=== PATIENT | male | born 1950 | race Caucasian/White ===

== ENCOUNTER 2021-08-04 12:32 | Observation (INO) | payer OTHER, MEDICAID ==
[~2021-08-04] VITALS: Ht 170.2 cm; Wt 56.7 kg
[2021-08-04 14:38] LABS: Basophils # (auto) 0.1 10 ^3/uL (0-0.2); Basophils % (auto) 1.7 % (0.0-2.0); Eosinophils # (auto) 0.2 10 ^3/uL (0-0.8); Eosinophils % (auto) 2.3 % (0.0-7.0); Hematocrit 40.9 % (41.0-53.0); Hemoglobin 13.6 g/dL (13.5-17.5); Lymphocytes % (auto) 13.1 % (10.0-50.0); Mean Corpuscular Hemoglobin 28.8 pg (28.0-32.0); Mean Corpuscular Hgb Conc. 33.2 g/dL (32.0-36.0); Mean Corpuscular Volume 86.5 fL (80.0-100.0); Monocytes # (auto) 0.9 10 ^3/uL (0-1.3); Monocytes % (auto) 11.6 % (0.0-12.0); Neutrophils # (auto) 5.6 10 ^3/uL (1.6-8.6); Neutrophils % (auto) 71.3 % (37.0-80.0); Nucleated Red Blood Cells % 0.1 %; Red Blood Cells 4.72 10^6/uL (4.5-5.90); Red Cell Distribution Width 14.5 % (11.8-14.3); White Blood Cell 7.8 10^3/uL (4.4-10.8)
[2021-08-04 14:45] LABS: Potassium 4.5 mmol/L (3.5-5.1)
[2021-08-04 14:55] LABS: Albumin 3.2 g/dL (3.4-5.0); BUN/Creatinine Ratio 15.8; Bilirubin, Total 0.3 mg/dL (0.2-1.0); Calcium 9.4 mg/dL (8.5-10.1); Total Protein 6.6 g/dL (6.4-8.2)
[2021-08-04] MEDS ORDERED: LACTATED RINGER'S 1,000 ML IV ONE (18:45)
[2021-08-05 03:05] LABS: Albumin 2.9 g/dL (3.4-5.0); Potassium 4.3 mmol/L (3.5-5.1)
[2021-08-05 03:07] LABS: Bilirubin, Total 0.4 mg/dL (0.2-1.0); Total Protein 5.7 g/dL (6.4-8.2)
[2021-08-05] MEDS ORDERED: IOHEXOL 350 MG/ML 100ML IJ ONE (03:20)
[2021-08-05] MEDS ORDERED: HEPARIN SODIUM (PORCINE) 5000 UNITS/ML 1ML VIAL IV ONE (08:30)
[2021-08-05] MEDS ORDERED: HEPARIN DRIP/D5W 100UNITS/ML 250 ML IV SCH ×2 (08:30→11:00)
[2021-08-05 08:50] VITALS: BP 166/73
[2021-08-05 09:53] LABS: INR 1.09 (0.9-1.15); Partial Thromboplastin Time 29.6 sec (23.6-33.0)
[2021-08-05] MEDS ORDERED: NITROGLYCERIN 0.4 MG SL TAB SL PRN (10:00)
[2021-08-05] MEDS ORDERED: SOD CHL 0.45% 1,000 ML IV ONE (10:00)
[2021-08-05] MEDS ORDERED: MORPHINE SULFATE INJECTION 2 MG/ML SYRG IV PRN ×2 (10:00)
[2021-08-05] MEDS ORDERED: ONDANSETRON HCL 4 MG/2 ML VIAL IV PRN (10:00)
[2021-08-05] MEDS ORDERED: VANCOMYCIN PER PHARMACY 0 MG IV SCH (12:00)
[2021-08-05] MEDS ORDERED: VANCOMYCIN 1GM/250ML 250 ML IV ONE ×3 (12:30→20:00)
[2021-08-05] MEDS ORDERED: PIPERACILLIN-TAZOB 3.375GM 100 ML IV SCH (14:00)
== END 2021-08-05 10:01 | disposition home or self-care (01) ==
LOC: ER 12:32 → OVERFLOW 13:36 → ER 08-05 09:52 → OVERFLOW 08-05 09:52 → UNDOADMOB 08-05 10:00 → OVERFLOW 08-05 10:00 → UNDODISOB 08-05 10:01
PROVIDERS: ADMIT Internal Medicine; ATTEND Internal Medicine
DX: L03.116 Cellulitis of left lower limb (principal); Z20.822 Contact with and (suspected) exposure to COVID-19; N13.2 Hydronephrosis with renal and ureteral calculous obstruction; I77.1 Stricture of artery; Z86.718 Personal history of other venous thrombosis and embolism
CPT/HCPCS: 36415; 75635; 80053; 85025; 85610; 85730; 87426; 93005; 93971; 96361; 96374; 99285; G0378; J1644; Q9967

== ENCOUNTER 2021-12-06 16:50 | Emergency (ER) | payer OTHER, MEDICAID ==
[~2021-12-06] VITALS: Ht 170.2 cm; Wt 86.2 kg
[2021-12-06 20:41] LABS: Basophils # (auto) 0 10 ^3/uL (0-0.2); Basophils % (auto) 0.5 % (0.0-2.0); Eosinophils # (auto) 0.3 10 ^3/uL (0-0.8); Eosinophils % (auto) 4.7 % (0.0-7.0); Hematocrit 39.1 % (41.0-53.0); Lymphocytes # (auto) 0.8 10 ^3/uL (0.4-5.4); Lymphocytes % (auto) 12.4 % (10.0-50.0); Mean Corpuscular Hemoglobin 27.7 pg (28.0-32.0); Mean Corpuscular Hgb Conc. 33.3 g/dL (32.0-36.0); Mean Corpuscular Volume 83.4 fL (80.0-100.0); Monocytes # (auto) 0.6 10 ^3/uL (0-1.3); Monocytes % (auto) 9.1 % (0.0-12.0); Neutrophils % (auto) 73.3 % (37.0-80.0); Nucleated Red Blood Cells % 0.1 %; Red Blood Cells 4.69 10^6/uL (4.5-5.90); Red Cell Distribution Width 15.9 % (11.8-14.3); White Blood Cell 6.8 10^3/uL (4.4-10.8)
[2021-12-06 21:03] LABS: Albumin 2.9 g/dL (3.4-5.0); Calcium 9.4 mg/dL (8.5-10.1); Potassium 3.8 mmol/L (3.5-5.1)
[2021-12-06 21:07] LABS: BUN/Creatinine Ratio 21.7; Bilirubin, Total 0.7 mg/dL (0.2-1.0); Total Protein 6.5 g/dL (6.4-8.2); Urine Bacteria NONE SEEN /hpf (None Seen); Urine Blood Negative /uL (Negative); Urine Specific Gravity 1.015 (1.001-1.035); Urine WBC 7 /hpf (0 - 3)
[2021-12-07] MEDS ORDERED: SULF400T11 PO (06:22)
[2021-12-07] MEDS ORDERED: CEPH-509 PO (06:22)
[2021-12-07 07:35] VITALS: BP 123/60
== END 2021-12-07 07:41 | disposition admitted as inpatient to this hospital (09) ==
LOC: ER 16:50
DX: T81.40XA Infection following a procedure, unspecified, initial encounter (principal); M60.862 Other myositis, left lower leg; E11.9 Type 2 diabetes mellitus without complications
CPT/HCPCS: 36415; 71045; 73700; 80053; 81001; 83605; 84484; 85025; 85652; 86141; 87040; 93005

== ENCOUNTER 2022-12-29 16:27 | Emergency (ER) | payer OTHER, MEDICAID ==
[~2022-12-29 16:27] MED LIST: CEPH-509 PO; SULF400T11 PO
[2022-12-29 17:26] LABS: Basophils # (auto) 0.1 10 ^3/uL (0-0.2); Basophils % (auto) 0.8 % (0.0-2.0); Eosinophils # (auto) 0.1 10 ^3/uL (0-0.8); Eosinophils % (auto) 1.9 % (0.0-7.0); Hematocrit 38.6 % (41.0-53.0); Hemoglobin 12.6 g/dL (13.5-17.5); Lymphocytes # (auto) 0.6 10 ^3/uL (0.4-5.4); Lymphocytes % (auto) 9.4 % (10.0-50.0); Mean Corpuscular Hemoglobin 28.3 pg (28.0-32.0); Mean Corpuscular Hgb Conc. 32.5 g/dL (32.0-36.0); Mean Corpuscular Volume 87.1 fL (80.0-100.0); Monocytes # (auto) 0.8 10 ^3/uL (0-1.3); Monocytes % (auto) 12.9 % (0.0-12.0); Neutrophils # (auto) 4.8 10 ^3/uL (1.6-8.6); Red Blood Cells 4.43 10^6/uL (4.5-5.90); Red Cell Distribution Width 17.1 % (11.8-14.3); White Blood Cell 6.4 10^3/uL (4.4-10.8)
[2022-12-29 17:34] LABS: Albumin 2.5 g/dL (3.4-5.0); Calcium 10.4 mg/dL (8.5-10.1)
[2022-12-29 17:38] LABS: BUN/Creatinine Ratio 12.8 (10.0-20.0); Bilirubin, Total 0.4 mg/dL (0.2-1.0); Total Protein 5.7 g/dL (6.4-8.2)
[2022-12-29 23:13] VITALS: BP 135/73
== END 2022-12-29 23:40 | disposition home or self-care (01) ==
LOC: ER 16:27
DX: D64.9 Anemia, unspecified (principal); E11.65 Type 2 diabetes mellitus with hyperglycemia; E83.52 Hypercalcemia; E78.5 Hyperlipidemia, unspecified; E78.00 Pure hypercholesterolemia, unspecified; I10 Essential (primary) hypertension; Z89.612 Acquired absence of left leg above knee; Z89.611 Acquired absence of right leg above knee
CPT/HCPCS: 36415; 80053; 85025; 86850; 86900; 86901

== ENCOUNTER 2023-04-18 17:13 | Inpatient (IN) | payer OTHER, MEDICAID ==
[~2023-04-18] VITALS: Ht 121.9 cm; Wt 76.1 kg
[~2023-04-18 17:13] MED LIST changes: +ATEN-60 PO; +DOCU-94 PO; +FENO145T27 PO; +FERR325T24 PO; +INSLISPI SC; +LORA-1121 PO; +METF-370 PO; +PRAV20TA3 PO; +QUET25TA37 PO; +RIV15T PO
[2023-04-18 18:58] VITALS: PULSE 89; RESP 16; O2SAT 97
[2023-04-18 19:15] LABS: Basophils # (auto) 0.1 10 ^3/uL (0-0.2); Eosinophils # (auto) 0.1 10 ^3/uL (0-0.8); Lymphocytes # (auto) 0.7 10 ^3/uL (0.4-5.4); Mean Corpuscular Volume 93.1 fL (80.0-100.0); Monocytes # (auto) 0.9 10 ^3/uL (0-1.3); White Blood Cell 6.5 10^3/uL (4.4-10.8)
[2023-04-18 19:17] LABS: Basophils % (auto) 0.9 % (0.0-2.0); Eosinophils % (auto) 2.1 % (0.0-7.0); Hematocrit 24.7 % (41.0-53.0); Lymphocytes % (auto) 10.3 % (10.0-50.0); Mean Corpuscular Hemoglobin 30.3 pg (28.0-32.0); Mean Corpuscular Hgb Conc. 32.5 g/dL (32.0-36.0); Monocytes % (auto) 13.5 % (0.0-12.0); Neutrophils # (auto) 4.8 10 ^3/uL (1.6-8.6); Neutrophils % (auto) 73.2 % (37.0-80.0); Nucleated Red Blood Cells % 0.2 %; Red Blood Cells 2.65 10^6/uL (4.5-5.90); Red Cell Distribution Width 16.6 % (11.8-14.3)
[2023-04-18 19:30] LABS: Alanine Aminotransferase 21 U/L (7-40); Albumin 3.2 g/dL (3.2-4.8); Alkaline Phosphatase 43 U/L (46-116); Anion Gap 13 (5-15); Aspartate Aminotransferase 25 U/L (13-40); BUN/Creatinine Ratio 20.4 (10.0-20.0); Blood Urea Nitrogen 79 mg/dL (9-23); Calcium 9.9 mg/dL (8.5-10.1); Carbon Dioxide 16 mmol/L (20-30); Chloride 113 mmol/L (98-107); Glucose 143 mg/dL (74-106); Sodium 142 mmol/L (136-145)
[2023-04-18 19:31] LABS: Bilirubin, Total 0.2 mg/dL (0.2-1.0); Total Protein 5.5 g/dL (5.7-8.2)
[2023-04-18 19:34] LABS: Potassium 5.8 mmol/L (3.5-5.1)
[2023-04-18 19:35] VITALS: O2SAT 99
[2023-04-18] MEDS ORDERED: InsuLIN REG 1unit/0.01ml Soln (100units/ml) IV ONE (19:45)
[2023-04-18] MEDS ORDERED: SODIUM BICARBONATE 8.4 % INJ 50ML VIAL IV ONE (19:45)
[2023-04-18] MEDS ORDERED: CALCIUM GLUC 1,000mg/50ml-NS 50 ML IV ONE (19:45)
[2023-04-18] MEDS ORDERED: DEXTROSE (50%) 50ML SYRG IV ONE (19:45)
[2023-04-18] MEDS ORDERED: ALBUTEROL SULF 2.5 MG/0.5ML(0.5%) NEB SOLN NEB ONE (19:45)
[2023-04-18] MEDS ORDERED: SODIUM CHLORIDE 0.9% 500 ML IV ONE (20:15)
[2023-04-18] MEDS ORDERED: DEXTROSE (50%) 50ML SYRG IV PRN ×2 (21:30→23:45)
[2023-04-18] MEDS ORDERED: InsuLIN REG 1unit/0.01ml Soln (100units/ml) SC SCH (22:00)
[2023-04-18] MEDS ORDERED: ACCU-CHEK COMFORT CURVE STRIP VI SCH (22:00)
[2023-04-19] MEDS: SODIUM CHLORIDE 0.9% 1,000 ML IV SCH ×2 (01:02→20:22)
[2023-04-19 05:06] LABS: Eosinophils # (auto) 0.1 10 ^3/uL (0-0.8); Eosinophils % (auto) 0.9 % (0.0-7.0); Hemoglobin 7.4 g/dL (13.5-17.5); Lymphocytes # (auto) 0.5 10 ^3/uL (0.4-5.4); Monocytes # (auto) 0.8 10 ^3/uL (0-1.3)
[2023-04-19 05:08] LABS: Basophils # (auto) 0.1 10 ^3/uL (0-0.2); Basophils % (auto) 0.8 % (0.0-2.0); Hematocrit 23.1 % (41.0-53.0); Lymphocytes % (auto) 7.9 % (10.0-50.0); Mean Corpuscular Hemoglobin 29.4 pg (28.0-32.0); Mean Corpuscular Hgb Conc. 32.1 g/dL (32.0-36.0); Mean Corpuscular Volume 91.6 fL (80.0-100.0); Monocytes % (auto) 13.2 % (0.0-12.0); Neutrophils # (auto) 4.9 10 ^3/uL (1.6-8.6); Neutrophils % (auto) 77.2 % (37.0-80.0); Red Blood Cells 2.53 10^6/uL (4.5-5.90); Red Cell Distribution Width 16.5 % (11.8-14.3); White Blood Cell 6.3 10^3/uL (4.4-10.8)
[2023-04-19 05:23] LABS: Alanine Aminotransferase 20 U/L (7-40); Alkaline Phosphatase 41 U/L (46-116); Anion Gap 10 (5-15); Aspartate Aminotransferase 20 U/L (13-40); Calcium 9.1 mg/dL (8.7-10.4); Carbon Dioxide 18 mmol/L (20-30); Chloride 114 mmol/L (98-107); Glucose 108 mg/dL (74-106); Potassium 5.4 mmol/L (3.5-5.1); Sodium 142 mmol/L (136-145)
[2023-04-19 05:24] LABS: Bilirubin, Total 0.2 mg/dL (0.2-1.0); Total Protein 5.3 g/dL (5.7-8.2)
[2023-04-19 05:33] LABS: Blood Urea Nitrogen 89 mg/dL (9-23)
[2023-04-19] MEDS ORDERED: SODIUM ZIRCONIUM CYCL 10 GM PAK PO ONE (05:45)
[2023-04-19 06:39] LABS: Urine Bacteria FEW /hpf (None Seen); Urine Blood 1+ /uL (Negative); Urine Clarity Clear (Clear); Urine Color Straw (Yellow); Urine Mucus FEW (None Seen); Urine Protein, UAD 1+ (Negative); Urine Specific Gravity 1.012 (1.001-1.035); Urine Urobilinogen Normal (Negative); Urine WBC 12 /hpf (0 - 3); Urine pH 5.5 (5.0-8.0)
[2023-04-19] MEDS: ACCU-CHEK COMFORT CURVE STRIP VI SCH ×4 (06:45→23:30)
[2023-04-19] MEDS: InsuLIN REG 1unit/0.01ml Soln (100units/ml) SC SCH ×4 (06:45→22:00)
[2023-04-19 09:00] VITALS: BP 80/44; PULSE 78; RESP 16; TEMP 98.8; O2SAT 98
[2023-04-19] MEDS ORDERED: HEPARIN SODIUM (PORCINE) 5000 UNITS/ML 1ML VIAL SC SCH (10:00)
[2023-04-19] MEDS ORDERED: RIVAROXABAN 2.5 MG TAB PO SCH (11:30)
[2023-04-19 13:00] VITALS: BP 92/55; PULSE 79; RESP 16; TEMP 98.8; O2SAT 96
[2023-04-19 17:00] VITALS: BP 85/52; PULSE 77; RESP 20; TEMP 98.5; O2SAT 97
[2023-04-19 19:50] VITALS: BP 101/54; PULSE 83; RESP 16; RESP 18; O2SAT 94
[2023-04-19] MEDS: MORPHINE SULFATE INJ 2 MG/ml SYRG IV PRN (20:07)
[2023-04-20] VITALS (8 sets, daily range): BP systolic 95–108; BP diastolic 53–74; PULSE 65–90; RESP 10–16; TEMP 97.3–98.6; O2SAT 72–99
[2023-04-20] MEDS: SODIUM CHLORIDE 0.9% 1,000 ML IV SCH ×2 (02:25→15:45)
[2023-04-20] MEDS: ACCU-CHEK COMFORT CURVE STRIP VI SCH ×4 (06:34→21:54)
[2023-04-20] MEDS: InsuLIN REG 1unit/0.01ml Soln (100units/ml) SC SCH ×4 (06:34→21:54)
[2023-04-20 08:37] LABS: Basophils # (auto) 0.1 10 ^3/uL (0-0.2); Eosinophils # (auto) 0.1 10 ^3/uL (0-0.8); Hemoglobin 7.4 g/dL (13.5-17.5); Lymphocytes # (auto) 0.5 10 ^3/uL (0.4-5.4); Monocytes # (auto) 0.8 10 ^3/uL (0-1.3)
[2023-04-20 08:38] LABS: Eosinophils % (auto) 2.2 % (0.0-7.0); Hematocrit 22.6 % (41.0-53.0); Lymphocytes % (auto) 9.1 % (10.0-50.0); Mean Corpuscular Hemoglobin 29.8 pg (28.0-32.0); Mean Corpuscular Hgb Conc. 32.6 g/dL (32.0-36.0); Mean Corpuscular Volume 91.2 fL (80.0-100.0); Monocytes % (auto) 14.8 % (0.0-12.0); Neutrophils # (auto) 4.1 10 ^3/uL (1.6-8.6); Neutrophils % (auto) 72.9 % (37.0-80.0); Nucleated Red Blood Cells % 0.1 %; Red Blood Cells 2.48 10^6/uL (4.5-5.90); Red Cell Distribution Width 16.2 % (11.8-14.3); White Blood Cell 5.6 10^3/uL (4.4-10.8)
[2023-04-20 08:51] LABS: INR 1.25 (0.9-1.15); Partial Thromboplastin Time 34.5 SEC (24.5-34.5); Prothrombin Time 12.9 sec (9.3-11.8)
[2023-04-20 08:52] LABS: Alanine Aminotransferase 18 U/L (7-40); Albumin 3.1 g/dL (3.2-4.8); Alkaline Phosphatase 39 U/L (46-116); Anion Gap 11 (5-15); Aspartate Aminotransferase 24 U/L (13-40); BUN/Creatinine Ratio 21.7 (10.0-20.0); Calcium 8.9 mg/dL (8.5-10.1); Carbon Dioxide 18 mmol/L (20-30); Chloride 114 mmol/L (98-107); Glucose 93 mg/dL (74-106); Potassium 5.5 mmol/L (3.5-5.1); Sodium 143 mmol/L (136-145)
[2023-04-20 08:53] LABS: Bilirubin, Total 0.2 mg/dL (0.2-1.0); Total Protein 5.3 g/dL (5.7-8.2)
[2023-04-20 09:27] LABS: Blood Urea Nitrogen 86 mg/dL (9-23)
[2023-04-20] MEDS ORDERED: IOHEXOL 300 MG/ML 100ML BOTTLE IJ ONE ×2 (13:10→17:06)
[2023-04-20] MEDS ORDERED: CIPROFLOXACIN 400MG/200ML 200 ML IV ONE (15:58)
[2023-04-20] MEDS ORDERED: ONDANSETRON HCL 4 MG/2 ML VIAL IV PRN (18:45)
[2023-04-20] MEDS: MUPIROCIN 2% OINT 15gm or 22gm FOR MRSA NARES EACHNOSTRI SCH (21:54)
[2023-04-21 05:00] VITALS: BP 98/50; PULSE 83; RESP 16; TEMP 98.4; O2SAT 98
[2023-04-21] MEDS: ACCU-CHEK COMFORT CURVE STRIP VI SCH ×4 (06:34→21:39)
[2023-04-21] MEDS: InsuLIN REG 1unit/0.01ml Soln (100units/ml) SC SCH ×4 (06:35→21:41)
[2023-04-21] MEDS: SODIUM CHLORIDE 0.9% 1,000 ML IV SCH ×2 (06:40→18:25)
[2023-04-21 08:00] VITALS: PULSE 85; RESP 19; O2SAT 99
[2023-04-21 09:00] VITALS: BP 95/50; PULSE 85; RESP 19; TEMP 97.6; O2SAT 99
[2023-04-21] MEDS: MUPIROCIN 2% OINT 15gm or 22gm FOR MRSA NARES EACHNOSTRI SCH ×2 (10:26→21:39)
[2023-04-21 13:00] VITALS: BP 102/60; PULSE 79; RESP 19; TEMP 98; O2SAT 98
[2023-04-21 22:00] VITALS: BP 120/55; PULSE 76; RESP 14; TEMP 98.6; O2SAT 98
[2023-04-22 05:00] VITALS: BP 129/49; PULSE 89; RESP 16; TEMP 98.2; O2SAT 97
[2023-04-22] MEDS: InsuLIN REG 1unit/0.01ml Soln (100units/ml) SC SCH ×4 (06:30→22:00)
[2023-04-22] MEDS: ACCU-CHEK COMFORT CURVE STRIP VI SCH ×4 (06:30→22:01)
[2023-04-22 08:00] VITALS: PULSE 65; RESP 17; O2SAT 97
[2023-04-22 08:57] VITALS: BP 110/50; PULSE 65; RESP 17; TEMP 98.4; O2SAT 97
[2023-04-22] MEDS: SODIUM CHLORIDE 0.9% 1,000 ML IV SCH ×2 (10:49→22:12)
[2023-04-22] MEDS: MUPIROCIN 2% OINT 15gm or 22gm FOR MRSA NARES EACHNOSTRI SCH ×2 (10:50→22:01)
[2023-04-22 13:00] VITALS: BP 110/56; PULSE 68; RESP 16; TEMP 98.2; O2SAT 96
[2023-04-22 17:00] VITALS: BP 103/49; PULSE 73; RESP 18; TEMP 97.9; O2SAT 96
[2023-04-22 22:00] VITALS: BP 125/68; PULSE 85; RESP 16; TEMP 98; O2SAT 100
[2023-04-23] VITALS (9 sets, daily range): BP systolic 105–138; BP diastolic 52–85; PULSE 56–85; RESP 16–20; TEMP 97–98.6; O2SAT 90–98
[2023-04-23] MEDS: ACCU-CHEK COMFORT CURVE STRIP VI SCH ×4 (05:58→21:32)
[2023-04-23] MEDS: InsuLIN REG 1unit/0.01ml Soln (100units/ml) SC SCH ×4 (05:58→21:51)
[2023-04-23] MEDS: MUPIROCIN 2% OINT 15gm or 22gm FOR MRSA NARES EACHNOSTRI SCH ×2 (09:16→21:31)
[2023-04-23] MEDS: SODIUM CHLORIDE 0.9% 1,000 ML IV SCH (12:37)
[2023-04-23] MEDS: MORPHINE SULFATE INJ 2 MG/ml SYRG IV PRN (12:38)
[2023-04-23] MEDS ORDERED: LIDOCAINE 2%HCL (LOCAL ANESTH.) INJ 20ML MDV ONE (14:10)
[2023-04-23] MEDS ORDERED: IODIXANOL 320MG/ML 100ML BTL IV ONE (14:10)
[2023-04-23 18:12] LABS: Basophils # (auto) 0.1 10 ^3/uL (0-0.2); Basophils % (auto) 0.9 % (0.0-2.0); Eosinophils # (auto) 0.1 10 ^3/uL (0-0.8); Eosinophils % (auto) 1.1 % (0.0-7.0); Lymphocytes # (auto) 0.4 10 ^3/uL (0.4-5.4); Lymphocytes % (auto) 7.2 % (10.0-50.0); Mean Corpuscular Hemoglobin 29.1 pg (28.0-32.0); Mean Corpuscular Hgb Conc. 31.1 g/dL (32.0-36.0); Mean Corpuscular Volume 93.3 fL (80.0-100.0); Monocytes # (auto) 0.9 10 ^3/uL (0-1.3); Monocytes % (auto) 15.1 % (0.0-12.0); Neutrophils # (auto) 4.4 10 ^3/uL (1.6-8.6); Neutrophils % (auto) 75.7 % (37.0-80.0); Nucleated Red Blood Cells % 0.2 %; Red Blood Cells 3.11 10^6/uL (4.5-5.90); Red Cell Distribution Width 18.1 % (11.8-14.3); White Blood Cell 5.9 10^3/uL (4.4-10.8)
[2023-04-23 18:33] LABS: Alanine Aminotransferase 15 U/L (7-40); Albumin 2.9 g/dL (3.2-4.8); Alkaline Phosphatase 46 U/L (46-116); Anion Gap 12 (5-15); Aspartate Aminotransferase 20 U/L (13-40); BUN/Creatinine Ratio 17.8 (10.0-20.0); Bilirubin, Total 0.2 mg/dL (0.2-1.0); Blood Urea Nitrogen 70 mg/dL (9-23); Calcium 8.1 mg/dL (8.7-10.4); Carbon Dioxide 13 mmol/L (20-30); Chloride 118 mmol/L (98-107); Glucose 110 mg/dL (74-106); Potassium 4.4 mmol/L (3.5-5.1); Sodium 143 mmol/L (136-145); Total Protein 5.1 g/dL (5.7-8.2)
[2023-04-23 19:21] LABS: Uric Acid 5.5 mg/dL (3.7-9.2)
[2023-04-23 19:24] LABS: Phosphorus 7.5 mg/dL (2.4-5.1)
[2023-04-23] MEDS: SODIUM BICARBONATE 50ML VIAL 50 ML in SOD CHL 0.45% 1,000 ML IV SCH (23:03)
[2023-04-24] VITALS (10 sets, daily range): BP systolic 109–117; BP diastolic 59–66; PULSE 71–88; RESP 14–22; TEMP 97.4–97.8; O2SAT 95–100
[2023-04-24] MEDS: SODIUM BICARBONATE 50ML VIAL 50 ML in SOD CHL 0.45% 1,000 ML IV SCH ×2 (05:15→17:17)
[2023-04-24 06:50] LABS: Alanine Aminotransferase 16 U/L (7-40); Albumin 3.1 g/dL (3.2-4.8); Alkaline Phosphatase 42 U/L (46-116); Anion Gap 15 (5-15); Aspartate Aminotransferase 18 U/L (13-40); BUN/Creatinine Ratio 12.1 (10.0-20.0); Bilirubin, Total 0.3 mg/dL (0.2-1.0); Blood Urea Nitrogen 44 mg/dL (9-23); Calcium 8.4 mg/dL (8.5-10.1); Carbon Dioxide 12 mmol/L (20-30); Chloride 116 mmol/L (98-107); Glucose 101 mg/dL (74-106); Potassium 4.5 mmol/L (3.5-5.1); Sodium 143 mmol/L (136-145); Total Protein 5.4 g/dL (5.7-8.2)
[2023-04-24] MEDS: InsuLIN REG 1unit/0.01ml Soln (100units/ml) SC SCH ×4 (07:00→22:19)
[2023-04-24] MEDS ORDERED: LIDOCAINE 2% JELLY 11ml (GLYDO) ONE (07:01)
[2023-04-24] MEDS: ACCU-CHEK COMFORT CURVE STRIP VI SCH ×4 (07:04→22:19)
[2023-04-24] MEDS ORDERED: LIDOCAINE 2% (LOCAL ANESTH.) PF 5ml SDV ONE (07:22)
[2023-04-24] MEDS ORDERED: DexAMETHasone SOD PHOS 10MG/1ML VIAL INJ ONE (07:22)
[2023-04-24] MEDS ORDERED: ROCURONIUM 10MG/ML 10ML VIAL IV ONE (07:22)
[2023-04-24] MEDS ORDERED: KETOROLAC TROMETH 30 MG/ML 1ML VIAL ONE (07:22)
[2023-04-24] MEDS ORDERED: ceFAZolin 1GM/50ML 100 ML IV ONE (07:22)
[2023-04-24] MEDS ORDERED: PROPOFOL 10 MG/ML 20 ML IV ONE (07:22)
[2023-04-24] MEDS ORDERED: GLYCOPYRROLATE 0.2 MG/ML 1ML VIAL ONE (07:22)
[2023-04-24] MEDS ORDERED: ONDANSETRON HCL 4 MG/2 ML VIAL ONE (07:22)
[2023-04-24] MEDS ORDERED: fentaNYL CITRATE 100 MCG/2 ML VL ONE (07:23)
[2023-04-24] MEDS ORDERED: SUGAMMADEX 200mg/2ml Vial (100MG/ML) IV ONE (07:24)
[2023-04-24] MEDS ORDERED: IOHEXOL 300 MG/ML 100ML BOTTLE IJ ONE (07:27)
[2023-04-24] MEDS ORDERED: SODIUM CHLORIDE LOCK 10 ML ONE ×2 (07:33→07:41)
[2023-04-24] MEDS ORDERED: PHENYLEPHRINE HCL 10 MG/ML VL ONE (07:41)
[2023-04-24] MEDS: SEVELAMER 800 MG TAB PO SCH ×2 (13:54→18:24)
[2023-04-24] MEDS: MUPIROCIN 2% OINT 15gm or 22gm FOR MRSA NARES EACHNOSTRI SCH ×2 (14:24→21:56)
[2023-04-24] MEDS: MORPHINE SULFATE INJ 2 MG/ml SYRG IV PRN ×2 (17:13→22:05)
[2023-04-25] MEDS: SODIUM BICARBONATE 50ML VIAL 50 ML in SOD CHL 0.45% 1,000 ML IV SCH (02:15)
[2023-04-25 05:00] VITALS: BP 90/50; PULSE 71; RESP 17; TEMP 97.6; O2SAT 99
[2023-04-25] MEDS: ACCU-CHEK COMFORT CURVE STRIP VI SCH ×4 (06:47→22:00)
[2023-04-25] MEDS: InsuLIN REG 1unit/0.01ml Soln (100units/ml) SC SCH ×4 (06:47→22:00)
[2023-04-25 09:00] VITALS: BP 79/51; PULSE 80; RESP 18; TEMP 98.9; O2SAT 94
[2023-04-25] MEDS: MUPIROCIN 2% OINT 15gm or 22gm FOR MRSA NARES EACHNOSTRI SCH (09:56)
[2023-04-25] MEDS: SEVELAMER 800 MG TAB PO SCH ×3 (09:56→18:06)
[2023-04-25] MEDS ORDERED: SEVE800T8 PO (11:23)
[2023-04-25] MEDS: SODIUM BICARBONATE 50ML VIAL 100 ML in SOD CHL 0.45% 1,000 ML IV SCH ×2 (12:30→23:30)
[2023-04-25 12:41] VITALS: BP 103/69; PULSE 89; RESP 18; TEMP 99; O2SAT 97
[2023-04-25] MEDS ORDERED: HYDROcodone-ACET 5/325MG TAB PO PRN (17:00)
[2023-04-25 17:09] VITALS: BP 103/51; PULSE 65; RESP 20; TEMP 97.5; O2SAT 98
[2023-04-25 20:00] VITALS: BP 111/59; PULSE 75; PULSE 99; RESP 18; RESP 20; TEMP 97.6; O2SAT 96
[2023-04-25 22:06] VITALS: BP 111/59; PULSE 66; RESP 18; TEMP 97.6; O2SAT 99
[2023-04-26 04:47] VITALS: BP 101/58; PULSE 69; RESP 20; TEMP 98; O2SAT 96
[2023-04-26] MEDS: ONDANSETRON HCL 4 MG/2 ML VIAL IV PRN ×2 (04:50→10:04)
[2023-04-26] MEDS: InsuLIN REG 1unit/0.01ml Soln (100units/ml) SC SCH ×3 (06:53→16:54)
[2023-04-26] MEDS: ACCU-CHEK COMFORT CURVE STRIP VI SCH ×3 (06:54→16:54)
[2023-04-26 08:00] VITALS: PULSE 64; O2SAT 99
[2023-04-26 08:30] VITALS: BP 120/65; PULSE 64; RESP 18; TEMP 98.6; O2SAT 99
[2023-04-26] MEDS: SEVELAMER 800 MG TAB PO SCH ×3 (08:58→18:00)
[2023-04-26] MEDS: SODIUM BICARBONATE 50ML VIAL 100 ML in SOD CHL 0.45% 1,000 ML IV SCH (10:30)
[2023-04-26 13:21] VITALS: BP 103/53; PULSE 59; RESP 17; TEMP 98.5; O2SAT 91
[2023-04-26 16:29] VITALS: TEMP 36.9
[2023-04-26 16:44] VITALS: BP 111/50; PULSE 57; RESP 16; TEMP 98; O2SAT 94
== END 2023-04-26 20:20 | disposition hospice, home (50) | DRG 660 ==
LOC: EDBD 17:13 → ER 17:13 → EDUNIT# 17:13 → OVERFLOW 23:50 → WEST WING 04-19 07:51
PROVIDERS: ADMIT Nurse Practitioner; ATTEND Family Medicine
PROC: 0TCB8ZZ Extirpation of Matter from Bladder, Via Natural or Artificial Opening Endoscopic (ICD-10-PCS; 2023-04-20)
PROC: 0TF6XZZ Fragmentation in Right Ureter, External Approach (ICD-10-PCS; 2023-04-20)
PROC: 30233N1 Transfusion of Nonautologous Red Blood Cells into Peripheral Vein, Percutaneous Approach (ICD-10-PCS; 2023-04-20 16:53)
PROC: 05HB33Z Insertion of Infusion Device into Right Basilic Vein, Percutaneous Approach (ICD-10-PCS; 2023-04-23)
PROC: B54MZZA Ultrasonography of Right Upper Extremity Veins, Guidance (ICD-10-PCS; 2023-04-23)
PROC: 0T9330Z Drainage of Right Kidney Pelvis with Drainage Device, Percutaneous Approach (ICD-10-PCS; 2023-04-24)
PROC: BT11YZZ Fluoroscopy of Right Kidney using Other Contrast (ICD-10-PCS; 2023-04-24)
PROC: BT41ZZZ Ultrasonography of Right Kidney (ICD-10-PCS; 2023-04-24)
PROC: 0T733DZ Dilation of Right Kidney Pelvis with Intraluminal Device, Percutaneous Approach (ICD-10-PCS; principal; 2023-04-24 07:29)
DX: T83.022A Displacement of nephrostomy catheter, initial encounter (principal); E87.20 Acidosis, unspecified; N18.4 Chronic kidney disease, stage 4 (severe); N13.2 Hydronephrosis with renal and ureteral calculous obstruction; N17.9 Acute kidney failure, unspecified; Z68.42 Body mass index [BMI] 45.0-49.9, adult; E11.22 Type 2 diabetes mellitus with diabetic chronic kidney disease; E87.5 Hyperkalemia; I12.9 Hypertensive chronic kidney disease with stage 1 through stage 4 chronic kidney disease, or unspecified chronic kidney disease; E83.39 Other disorders of phosphorus metabolism; R62.7 Adult failure to thrive; F03.90 Unspecified dementia, unspecified severity, without behavioral disturbance, psychotic disturbance, mood disturbance, and anxiety; N21.0 Calculus in bladder; E78.00 Pure hypercholesterolemia, unspecified; Z89.612 Acquired absence of left leg above knee; Z89.611 Acquired absence of right leg above knee; Z86.73 Personal history of transient ischemic attack (TIA), and cerebral infarction without residual deficits; Z51.5 Encounter for palliative care; Y84.6 Urinary catheterization as the cause of abnormal reaction of the patient, or of later complication, without mention of misadventure at the time of the procedure; Y92.89 Other specified places as the place of occurrence of the external cause
CPT/HCPCS: 36415; 71045; 74018; 74176; 76000; 76775; 76942; 80053; 81001; 82306; 82962; 83970; 84100; 84132; 84550; 85025; 85610; 85730; 86850; 86900; 86901; 86920; 87081; 93005; 94640; 99152; 99291; C1769; G0378; J0690; J1100; J1815; J1885; J2001; J2405; J2704; Q9967

== ENCOUNTER 2023-04-28 19:37 | Inpatient (IN) | payer OTHER, MEDICAID ==
[~2023-04-28] VITALS: Ht 134.6 cm; Wt 74.1 kg
[~2023-04-28 19:37] MED LIST changes: +SEVE800T8 PO
[2023-04-28 20:15] VITALS: PULSE 68; RESP 18; O2SAT 90
[2023-04-28 20:36] LABS: Basophils # (auto) 0 10 ^3/uL (0-0.2); Eosinophils # (auto) 0.1 10 ^3/uL (0-0.8); Hemoglobin 9.1 g/dL (13.5-17.5); Lymphocytes # (auto) 0.5 10 ^3/uL (0.4-5.4); Mean Corpuscular Volume 93.9 fL (80.0-100.0); Nucleated Red Blood Cells % 0.1 %
[2023-04-28 20:38] LABS: Basophils % (auto) 0.7 % (0.0-2.0); Eosinophils % (auto) 1.1 % (0.0-7.0); Hematocrit 29.3 % (41.0-53.0); Lymphocytes % (auto) 8.4 % (10.0-50.0); Mean Corpuscular Hemoglobin 29.3 pg (28.0-32.0); Mean Corpuscular Hgb Conc. 31.2 g/dL (32.0-36.0); Monocytes % (auto) 14.8 % (0.0-12.0); Neutrophils # (auto) 4.9 10 ^3/uL (1.6-8.6); Red Blood Cells 3.12 10^6/uL (4.5-5.90); Red Cell Distribution Width 18.2 % (11.8-14.3); White Blood Cell 6.5 10^3/uL (4.4-10.8)
[2023-04-28 20:49] LABS: Albumin 2.9 g/dL (3.2-4.8); Alkaline Phosphatase 55 U/L (46-116); Anion Gap 12 (5-15); Aspartate Aminotransferase 48 U/L (13-40); BUN/Creatinine Ratio 14.3 (10.0-20.0); Bilirubin, Total 0.2 mg/dL (0.2-1.0); Blood Urea Nitrogen 59 mg/dL (9-23); Calcium 8.7 mg/dL (8.7-10.4); Carbon Dioxide 14 mmol/L (20-30); Chloride 114 mmol/L (98-107); Glucose 155 mg/dL (74-106); Magnesium 1.8 mg/dL (1.6-2.6); Sodium 140 mmol/L (136-145); Total Protein 5.1 g/dL (5.7-8.2)
[2023-04-28 20:58] LABS: Alanine Aminotransferase < 9 U/L (7-40)
[2023-04-28] MEDS ORDERED: SODIUM CHLORIDE 0.9% 1,000 ML IV ONE (21:00)
[2023-04-28] MEDS ORDERED: ACETAMINOPHEN 650 MG RECT SUPP PR ONE (21:00)
[2023-04-28] MEDS ORDERED: cefTRIAXone 1GM/50ML D5W 50 ML IV ONE (21:00)
[2023-04-28] MEDS ORDERED: VANCOMYCIN HCL 1000 MG VL IV ONE (21:00)
[2023-04-28 21:42] LABS: INR 2.38 (0.9-1.15); Partial Thromboplastin Time 43.6 SEC (24.5-34.5); Prothrombin Time 23.6 sec (9.3-11.8)
[2023-04-28] MEDS ORDERED: PANTOPRAZOLE 40 MG/10 ML VIAL INJ IV ONE (21:45)
[2023-04-28] MEDS ORDERED: ALBUMIN 25% 100 ML IV ONE (21:45)
[2023-04-28 21:46] LABS: Blood Alcohol < 3.0 mg/dL (<10)
[2023-04-28 21:48] LABS: Creatine Kinase IFCC 73 U/L (46-171)
[2023-04-28 21:56] LABS: CRP High Sensitivity 11.83 mg/dL (<1.0)
[2023-04-28 22:29] LABS: Erythrocyte Sedimentation Rate 53 mm/hr (0-20)
[2023-04-29] MEDS ORDERED: DEXTROSE (50%) 50ML SYRG IV PRN (09:00)
[2023-04-29] MEDS ORDERED: NITROGLYCERIN 0.4 MG SL TAB SL PRN (09:00)
[2023-04-29] MEDS ORDERED: MORPHINE SULFATE INJ 2 MG/ml SYRG IV PRN (09:00)
[2023-04-29] MEDS ORDERED: PANTOPRAZOLE 40 MG/10 ML VIAL INJ IV ONE (09:00)
[2023-04-29] MEDS ORDERED: ALBUMIN 25% 100 ML IV ONE (09:15)
[2023-04-29] MEDS ORDERED: ASPirin 325 MG TAB PO ONE (10:00)
[2023-04-29] MEDS ORDERED: RIVAROXABAN 15 MG TAB PO SCH (10:00)
[2023-04-29] MEDS ORDERED: FUROSEMIDE 20 MG/2 ML VIAL IV SCH ×2 (10:00→18:00)
[2023-04-29] MEDS: PANTOPRAZOLE 40 MG/10 ML VIAL INJ IV SCH (10:00)
[2023-04-29] MEDS: DOCUSATE SOD 100 MG CAP PO SCH ×2 (10:00→22:45)
[2023-04-29] MEDS ORDERED: ASPirin 81 mg TAB PO ONE (11:15)
[2023-04-29] MEDS ORDERED: FUROSEMIDE 40 MG/4 ML VIAL IV ONE (11:15)
[2023-04-29] MEDS ORDERED: HEPARIN DRIP/D5W 100UNITS/ML 250 ML IV SCH ×2 (11:15→11:45)
[2023-04-29] MEDS ORDERED: HEPARIN SODIUM (PORCINE) 5000 UNITS/ML 1ML VIAL IV ONE (11:15)
[2023-04-29] MEDS ORDERED: CLOPIDOGREL 300 MG TAB PO ONE (11:15)
[2023-04-29 11:17] LABS: Triglycerides 153 mg/dL (< 150)
[2023-04-29 11:18] LABS: LDL Cholesterol 54 mg/dL (< 100)
[2023-04-29 11:19] LABS: Cholesterol 92 mg/dL (< 200); HDL Cholesterol 13 mg/dL (40-59)
[2023-04-29 12:02] LABS: Albumin 2.9 g/dL (3.2-4.8); Alkaline Phosphatase 49 U/L (46-116); Anion Gap 16.00001 (5-15); Aspartate Aminotransferase 36 U/L (13-40); BUN/Creatinine Ratio 9.6 (10.0-20.0); Calcium 8.5 mg/dL (8.5-10.1); Chloride 116 mmol/L (98-107); Glucose 121 mg/dL (74-106); Potassium 5.3 mmol/L (3.5-5.1); Sodium 142 mmol/L (136-145)
[2023-04-29 12:03] LABS: Bilirubin, Total 0.2 mg/dL (0.2-1.0); Total Protein 5.2 g/dL (5.7-8.2)
[2023-04-29] MEDS: SEVELAMER 800 MG TAB PO SCH ×2 (12:06→18:21)
[2023-04-29] MEDS: ACCU-CHEK COMFORT CURVE STRIP VI SCH ×3 (12:08→22:36)
[2023-04-29 12:15] LABS: Alanine Aminotransferase < 9 U/L (7-40); Blood Urea Nitrogen 38 mg/dL (9-23)
[2023-04-29 12:20] LABS: Carbon Dioxide < 10 mmol/L (20-30)
[2023-04-29 12:27] LABS: Basophils # (auto) 0.1 10 ^3/uL (0-0.2); Basophils % (auto) 0.6 % (0.0-2.0); Eosinophils # (auto) 0.1 10 ^3/uL (0-0.8); Eosinophils % (auto) 1.5 % (0.0-7.0); Hematocrit 28.9 % (41.0-53.0); Hemoglobin 8.9 g/dL (13.5-17.5); Lymphocytes # (auto) 0.4 10 ^3/uL (0.4-5.4); Lymphocytes % (auto) 5.1 % (10.0-50.0); Mean Corpuscular Hemoglobin 28.6 pg (28.0-32.0); Mean Corpuscular Hgb Conc. 30.7 g/dL (32.0-36.0); Monocytes % (auto) 12.2 % (0.0-12.0); Neutrophils # (auto) 6.6 10 ^3/uL (1.6-8.6); Neutrophils % (auto) 80.6 % (37.0-80.0); Nucleated Red Blood Cells % 0.1 %; Red Blood Cells 3.11 10^6/uL (4.5-5.90); Red Cell Distribution Width 17.9 % (11.8-14.3); White Blood Cell 8.2 10^3/uL (4.4-10.8)
[2023-04-29] MEDS: InsuLIN REG 1unit/0.01ml Soln (100units/ml) SC SCH ×3 (12:31→22:36)
[2023-04-29 12:44] LABS: INR 2.16 (0.9-1.15); Partial Thromboplastin Time 45.3 SEC (24.5-34.5); Prothrombin Time 21.6 sec (9.3-11.8)
[2023-04-29] MEDS ORDERED: SODIUM BICARBONATE 8.4 % INJ 50ML VIAL IV ONE (16:15)
[2023-04-29] MEDS ORDERED: PATIENTS OWN MEDICATION (Ferrous Sulfate 325 MG) PO SCH (18:00)
[2023-04-29] MEDS: FERROUS SULFATE 325mg EC TAB PO SCH (18:21)
[2023-04-29] MEDS: FUROSEMIDE 40 MG/4 ML VIAL IV SCH (18:23)
[2023-04-29] MEDS: LORazepam 0.5 MG TAB PO PRN (20:44)
[2023-04-29 21:14] VITALS: PULSE 94; O2SAT 98
[2023-04-29] MEDS: QUEtiapine FUMARATE 25 MG TAB PO SCH (21:38)
[2023-04-29] MEDS ORDERED: FENOFIBRATE 145 MG PO SCH (22:00)
[2023-04-29] MEDS: PRAVASTATIN SODIUM 20 MG TAB PO SCH (22:44)
[2023-04-29] MEDS: RIVAROXABAN 2.5 MG TAB PO SCH (22:44)
[2023-04-29] MEDS: ATORVASTATIN 20 MG TAB PO SCH (22:44)
[2023-04-29] MEDS: PHENYLEPHRINE IV 250 ML IV SCH (23:21)
[2023-04-30] VITALS (64 sets, daily range): BP systolic 76–132; BP diastolic 39–79; PULSE 69–96; RESP 12–22; TEMP 98.1–98.5; O2SAT 87–99
[2023-04-30 05:49] LABS: Albumin 3.1 g/dL (3.2-4.8); Alkaline Phosphatase 56 U/L (46-116); Anion Gap 15 (5-15); Aspartate Aminotransferase 30 U/L (13-40); BUN/Creatinine Ratio 12.3 (10.0-20.0); Bilirubin, Total 0.2 mg/dL (0.2-1.0); Calcium 8.7 mg/dL (8.5-10.1); Carbon Dioxide 14 mmol/L (20-30); Chloride 114 mmol/L (98-107); Glucose 95 mg/dL (74-106); Sodium 143 mmol/L (136-145); Total Protein 5.3 g/dL (5.7-8.2)
[2023-04-30 06:05] LABS: Blood Urea Nitrogen 51 mg/dL (9-23)
[2023-04-30 06:06] LABS: Alanine Aminotransferase < 9 U/L (7-40)
[2023-04-30 06:07] LABS: Basophils # (auto) 0.1 10 ^3/uL (0-0.2); Basophils % (auto) 1.3 % (0.0-2.0); Eosinophils # (auto) 0.1 10 ^3/uL (0-0.8); Eosinophils % (auto) 1.5 % (0.0-7.0); Hematocrit 29.9 % (41.0-53.0); Hemoglobin 9.3 g/dL (13.5-17.5); Lymphocytes # (auto) 0.6 10 ^3/uL (0.4-5.4); Lymphocytes % (auto) 7.8 % (10.0-50.0); Mean Corpuscular Hemoglobin 28.8 pg (28.0-32.0); Mean Corpuscular Hgb Conc. 31.2 g/dL (32.0-36.0); Mean Corpuscular Volume 92.3 fL (80.0-100.0); Monocytes # (auto) 1.4 10 ^3/uL (0-1.3); Monocytes % (auto) 17.3 % (0.0-12.0); Neutrophils # (auto) 5.7 10 ^3/uL (1.6-8.6); Neutrophils % (auto) 72.1 % (37.0-80.0); Nucleated Red Blood Cells % 0.1 %; Red Blood Cells 3.24 10^6/uL (4.5-5.90); Red Cell Distribution Width 17.5 % (11.8-14.3); White Blood Cell 7.9 10^3/uL (4.4-10.8)
[2023-04-30] MEDS: FUROSEMIDE 40 MG/4 ML VIAL IV SCH ×2 (06:41→18:36)
[2023-04-30] MEDS: InsuLIN REG 1unit/0.01ml Soln (100units/ml) SC SCH ×4 (07:00→21:45)
[2023-04-30] MEDS: ACCU-CHEK COMFORT CURVE STRIP VI SCH ×4 (07:16→21:41)
[2023-04-30] MEDS: PHENYLEPHRINE IV 250 ML IV SCH ×4 (07:20→17:01)
[2023-04-30] MEDS: FERROUS SULFATE 325mg EC TAB PO SCH ×2 (08:00→18:36)
[2023-04-30] MEDS: SEVELAMER 800 MG TAB PO SCH ×3 (08:00→18:36)
[2023-04-30] MEDS ORDERED: ASPirin 81 mg TAB PO SCH (10:00)
[2023-04-30] MEDS: PANTOPRAZOLE 40 MG/10 ML VIAL INJ IV SCH (10:27)
[2023-04-30] MEDS: DOCUSATE SOD 100 MG CAP PO SCH ×2 (10:28→21:41)
[2023-04-30] MEDS: CLOPIDOGREL BISULFATE 75 MG TAB PO SCH (10:29)
[2023-04-30] MEDS: ASPirin 81 mg TAB PO SCH (10:29)
[2023-04-30] MEDS: RIVAROXABAN 2.5 MG TAB PO SCH ×2 (10:44→21:42)
[2023-04-30 13:10] LABS: Urine Bacteria MOD /hpf (None Seen); Urine Blood 1+ /uL (Negative); Urine Clarity HAZY (Clear); Urine Protein, UAD 1+ (Negative); Urine Specific Gravity 1.011 (1.001-1.035); Urine Urobilinogen Normal (Negative); Urine WBC 100 /hpf (0 - 3)
[2023-04-30 13:14] LABS: Urine Color Yellow (Yellow)
[2023-04-30 13:54] LABS: Protein, Urine 56.5 mg/dL (0.0-11.9)
[2023-04-30 13:57] LABS: Creatinine, Urine 26.08 mg/dL (30.0-125.0)
[2023-04-30 13:58] LABS: Amphetamine Screen, Urine Neg (NEGATIVE); Barbiturate Scree,Urine Neg (NEGATIVE); Benzodiazephine Screen, Urine Neg (NEGATIVE)
[2023-04-30 13:59] LABS: Cannabinoid Screen, Urine Neg (NEGATIVE); Cocaine Screen, Urine Neg (NEGATIVE); Opiate Scree,Urine Neg (NEGATIVE); Phencyclidine Screen, Urine Neg (NEGATIVE)
[2023-04-30] MEDS ORDERED: LIDOCAINE 1% (LOCAL ANESTH.) PF 5ml SDV ID ONE (15:30)
[2023-04-30] MEDS: DOPamine 1600MCG/ML D5W 250 ML IV SCH (17:00)
[2023-04-30] MEDS: SODIUM BICARBONATE 50ML VIAL 100 ML in D5W 5% 1,000 ML IV SCH (17:01)
[2023-04-30] MEDS ORDERED: ONDANSETRON HCL 4 MG/2 ML VIAL IV PRN (18:15)
[2023-04-30] MEDS: PRAVASTATIN SODIUM 20 MG TAB PO SCH (21:41)
[2023-04-30] MEDS: ATORVASTATIN 20 MG TAB PO SCH (21:41)
[2023-04-30] MEDS: SODIUM CHLOR 0.9% PF (SALINE LOCK) 10ML VIAL/SYR IV SCH (21:41)
[2023-04-30] MEDS: QUEtiapine FUMARATE 25 MG TAB PO SCH (21:42)
[2023-04-30] MEDS: LORazepam 0.5 MG TAB PO PRN (23:44)
[2023-05-01] VITALS (100 sets, daily range): BP systolic 69–125; BP diastolic 33–76; PULSE 66–118; RESP 12–23; TEMP 97.9–98.3; O2SAT 89–100
[2023-05-01] MEDS: SODIUM BICARBONATE 50ML VIAL 100 ML in D5W 5% 1,000 ML IV SCH ×2 (03:24→10:45)
[2023-05-01] MEDS: PHENYLEPHRINE IV 250 ML IV SCH ×3 (04:48→23:01)
[2023-05-01] MEDS: FUROSEMIDE 40 MG/4 ML VIAL IV SCH ×2 (06:12→18:28)
[2023-05-01] MEDS: ACCU-CHEK COMFORT CURVE STRIP VI SCH ×4 (06:23→21:27)
[2023-05-01] MEDS: InsuLIN REG 1unit/0.01ml Soln (100units/ml) SC SCH ×4 (06:32→21:28)
[2023-05-01] MEDS ORDERED: DOBUTamine 1000MCG/ML 250 ML IV SCH (08:30)
[2023-05-01] MEDS: ACETAMINOPHEN 325 MG TAB PO PRN ×2 (08:48→16:23)
[2023-05-01] MEDS: SEVELAMER 800 MG TAB PO SCH ×3 (08:49→18:27)
[2023-05-01] MEDS: FERROUS SULFATE 325mg EC TAB PO SCH ×2 (08:49→18:27)
[2023-05-01 10:32] LABS: Chloride 112 mmol/L (98-107); Potassium 4.5 mmol/L (3.5-5.1); Sodium 144 mmol/L (136-145)
[2023-05-01 10:33] LABS: Anion Gap 13 (5-15); Carbon Dioxide 19 mmol/L (20-30)
[2023-05-01 10:34] LABS: Calcium 8.1 mg/dL (8.7-10.4)
[2023-05-01 10:38] LABS: BUN/Creatinine Ratio 18.2 (10.0-20.0); Glucose 186 mg/dL (74-106)
[2023-05-01 10:39] LABS: Magnesium 1.6 mg/dL (1.6-2.6)
[2023-05-01 10:41] LABS: Basophils # (auto) 0.1 10 ^3/uL (0-0.2); Basophils % (auto) 0.9 % (0.0-2.0); Eosinophils # (auto) 0.1 10 ^3/uL (0-0.8); Eosinophils % (auto) 1.5 % (0.0-7.0); Hematocrit 30.1 % (41.0-53.0); Hemoglobin 9.5 g/dL (13.5-17.5); Lymphocytes # (auto) 0.5 10 ^3/uL (0.4-5.4); Lymphocytes % (auto) 7.6 % (10.0-50.0); Mean Corpuscular Hemoglobin 28.8 pg (28.0-32.0); Mean Corpuscular Hgb Conc. 31.6 g/dL (32.0-36.0); Mean Corpuscular Volume 91.2 fL (80.0-100.0); Monocytes % (auto) 14.9 % (0.0-12.0); Neutrophils # (auto) 5.1 10 ^3/uL (1.6-8.6); Neutrophils % (auto) 75.1 % (37.0-80.0); Nucleated Red Blood Cells % 0.2 %; Red Cell Distribution Width 17.8 % (11.8-14.3); White Blood Cell 6.9 10^3/uL (4.4-10.8)
[2023-05-01 10:52] LABS: Blood Urea Nitrogen 75 mg/dL (9-23)
[2023-05-01] MEDS: RIVAROXABAN 2.5 MG TAB PO SCH ×2 (11:06→21:27)
[2023-05-01] MEDS: PANTOPRAZOLE 40 MG/10 ML VIAL INJ IV SCH (11:06)
[2023-05-01] MEDS: ASPirin 81 mg TAB PO SCH (11:06)
[2023-05-01] MEDS: cefTRIAXone 1GM/50ML D5W 50 ML IV SCH (11:06)
[2023-05-01] MEDS: DOCUSATE SOD 100 MG CAP PO SCH ×2 (11:06→21:28)
[2023-05-01] MEDS: CLOPIDOGREL BISULFATE 75 MG TAB PO SCH (11:06)
[2023-05-01] MEDS: SODIUM CHLOR 0.9% PF (SALINE LOCK) 10ML VIAL/SYR IV SCH ×2 (11:14→21:28)
[2023-05-01] MEDS: DOPamine 1600MCG/ML D5W 250 ML IV SCH (12:45)
[2023-05-01] MEDS: LORazepam 0.5 MG TAB PO PRN ×2 (16:22→21:27)
[2023-05-01] MEDS: SOD CHL 0.45% 1,000 ML IV SCH (16:23)
[2023-05-01] MEDS: PRAVASTATIN SODIUM 20 MG TAB PO SCH (21:27)
[2023-05-01] MEDS: QUEtiapine FUMARATE 25 MG TAB PO SCH (21:28)
[2023-05-01] MEDS: ATORVASTATIN 20 MG TAB PO SCH (21:28)
[2023-05-02] VITALS (101 sets, daily range): BP systolic 74–133; BP diastolic 42–116; PULSE 71–152; RESP 11–24; TEMP 98.1–98.8; O2SAT 72–100
[2023-05-02] MEDS: SOD CHL 0.45% 1,000 ML IV SCH ×3 (02:14→21:24)
[2023-05-02 04:14] LABS: Anion Gap 11 (5-15); Carbon Dioxide 20 mmol/L (20-30); Chloride 110 mmol/L (98-107); Potassium 4.4 mmol/L (3.5-5.1); Sodium 141 mmol/L (136-145)
[2023-05-02 04:15] LABS: Calcium 8.1 mg/dL (8.7-10.4)
[2023-05-02 04:20] LABS: BUN/Creatinine Ratio 15.4 (10.0-20.0); Glucose 121 mg/dL (74-106)
[2023-05-02] MEDS: PHENYLEPHRINE IV 250 ML IV SCH ×3 (04:21→20:04)
[2023-05-02 04:24] LABS: Hematocrit 26.7 % (41.0-53.0); Hemoglobin 8.5 g/dL (13.5-17.5); Mean Corpuscular Hemoglobin 28.4 pg (28.0-32.0); Mean Corpuscular Hgb Conc. 31.8 g/dL (32.0-36.0); Mean Corpuscular Volume 89.3 fL (80.0-100.0); Red Blood Cells 2.99 10^6/uL (4.5-5.90); Red Cell Distribution Width 17.3 % (11.8-14.3); White Blood Cell 4.6 10^3/uL (4.4-10.8)
[2023-05-02 04:28] LABS: Basophils % (manual) 0 (0.0-2.0); Blast Cells 0; Metamyelocytes % 0; Myelocytes % 0; Promyelocytes % 0; Reactive Lymphocytes 0
[2023-05-02 04:30] LABS: Blood Urea Nitrogen 59 mg/dL (9-23)
[2023-05-02] MEDS: FUROSEMIDE 40 MG/4 ML VIAL IV SCH ×2 (06:18→19:18)
[2023-05-02] MEDS: ACCU-CHEK COMFORT CURVE STRIP VI SCH ×4 (06:18→21:30)
[2023-05-02] MEDS: InsuLIN REG 1unit/0.01ml Soln (100units/ml) SC SCH ×4 (06:18→21:30)
[2023-05-02 06:57] LABS: Anisocytosis Slight; Band Neutrophils % (manual) 7; Eosinophils % (manual) 2 (0-7); Lymphocytes % (manual) 8 (10.0-50.0); Monocytes % (manual) 15 (0-12)
[2023-05-02 06:58] LABS: Platelet Estimate Adequate
[2023-05-02] MEDS: ASPirin 81 mg TAB PO SCH (09:57)
[2023-05-02] MEDS: SEVELAMER 800 MG TAB PO SCH ×3 (09:57→19:18)
[2023-05-02] MEDS: CLOPIDOGREL BISULFATE 75 MG TAB PO SCH (09:57)
[2023-05-02] MEDS: cefTRIAXone 1GM/50ML D5W 50 ML IV SCH (09:57)
[2023-05-02] MEDS: RIVAROXABAN 2.5 MG TAB PO SCH ×2 (09:57→21:30)
[2023-05-02] MEDS: PANTOPRAZOLE 40 MG/10 ML VIAL INJ IV SCH (09:57)
[2023-05-02] MEDS: FERROUS SULFATE 325mg EC TAB PO SCH ×2 (09:58→19:18)
[2023-05-02] MEDS: SODIUM CHLOR 0.9% PF (SALINE LOCK) 10ML VIAL/SYR IV SCH ×2 (09:58→21:30)
[2023-05-02] MEDS: DOCUSATE SOD 100 MG CAP PO SCH ×2 (09:58→21:30)
[2023-05-02] MEDS: LORazepam 0.5 MG TAB PO PRN (21:25)
[2023-05-02] MEDS: PRAVASTATIN SODIUM 20 MG TAB PO SCH (21:30)
[2023-05-02] MEDS: ATORVASTATIN 20 MG TAB PO SCH (21:30)
[2023-05-02] MEDS: QUEtiapine FUMARATE 25 MG TAB PO SCH (21:30)
[2023-05-03] VITALS (16 sets, daily range): BP systolic 75–130; BP diastolic 38–100; PULSE 74–98; RESP 14–26; TEMP 98–98.4; O2SAT 92–100
[2023-05-03] MEDS: FUROSEMIDE 40 MG/4 ML VIAL IV SCH (06:00)
[2023-05-03] MEDS: ACCU-CHEK COMFORT CURVE STRIP VI SCH ×3 (07:00→16:35)
[2023-05-03] MEDS: InsuLIN REG 1unit/0.01ml Soln (100units/ml) SC SCH ×3 (07:00→16:35)
[2023-05-03] MEDS: SOD CHL 0.45% 1,000 ML IV SCH ×2 (07:15→17:15)
[2023-05-03] MEDS: FERROUS SULFATE 325mg EC TAB PO SCH (08:00)
[2023-05-03] MEDS: SEVELAMER 800 MG TAB PO SCH ×2 (08:00→12:00)
[2023-05-03] MEDS: cefTRIAXone 1GM/50ML D5W 50 ML IV SCH (09:00)
[2023-05-03] MEDS: ASPirin 81 mg TAB PO SCH (10:00)
[2023-05-03] MEDS: SODIUM CHLOR 0.9% PF (SALINE LOCK) 10ML VIAL/SYR IV SCH (10:00)
[2023-05-03] MEDS: RIVAROXABAN 2.5 MG TAB PO SCH (10:00)
[2023-05-03] MEDS: DOCUSATE SOD 100 MG CAP PO SCH (10:00)
[2023-05-03] MEDS: PANTOPRAZOLE 40 MG/10 ML VIAL INJ IV SCH (10:00)
[2023-05-03] MEDS: CLOPIDOGREL BISULFATE 75 MG TAB PO SCH (10:00)
[2023-05-03 12:42] LABS: Albumin 2.7 g/dL (3.2-4.8); Alkaline Phosphatase 47 U/L (46-116); Anion Gap 12 (5-15); Aspartate Aminotransferase 21 U/L (13-40); BUN/Creatinine Ratio 15.3 (10.0-20.0); Bilirubin, Total 0.2 mg/dL (0.2-1.0); Blood Urea Nitrogen 56 mg/dL (9-23); Calcium 8.2 mg/dL (8.7-10.4); Carbon Dioxide 19 mmol/L (20-30); Chloride 108 mmol/L (98-107); Glucose 99 mg/dL (74-106); Potassium 4.1 mmol/L (3.5-5.1); Sodium 139 mmol/L (136-145); Total Protein 4.5 g/dL (5.7-8.2)
[2023-05-03 13:51] LABS: Alanine Aminotransferase < 9 U/L (7-40)
[2023-05-03] MEDS ORDERED: NITR-87 PO (15:19)
[2023-05-03] MEDS: LORazepam 0.5 MG TAB PO PRN (16:20)
[2023-05-03] MEDS: ACETAMINOPHEN 325 MG TAB PO PRN (16:20)
[2023-05-03 16:32] LABS: White Blood Cell 4.4 10^3/uL (4.4-10.8)
[2023-05-03 16:33] LABS: Hematocrit 27.7 % (41.0-53.0); Hemoglobin 8.9 g/dL (13.5-17.5); Mean Corpuscular Hemoglobin 28.4 pg (28.0-32.0); Mean Corpuscular Volume 88.9 fL (80.0-100.0); Red Blood Cells 3.12 10^6/uL (4.5-5.90)
[2023-05-03 16:34] LABS: Band Neutrophils % (manual) 0; Basophils % (manual) 0 (0.0-2.0); Blast Cells 0; Metamyelocytes % 0; Myelocytes % 0; Promyelocytes % 0; Reactive Lymphocytes 0; Red Cell Distribution Width 17.1 % (11.8-14.3)
[2023-05-03 16:47] LABS: Eosinophils % (manual) 2 (0-7); Lymphocytes % (manual) 8 (10.0-50.0); Monocytes % (manual) 17 (0-12); Platelet Estimate Adequate
== END 2023-05-03 17:55 | disposition hospice, home (50) | DRG 871 ==
LOC: EDBD 19:37 → ER 19:43 → TELE 04-29 09:02 → ICU WEST 04-30 07:46
PROVIDERS: ADMIT Nurse Practitioner Family; ATTEND Nurse Practitioner Acute Care
PROC: 05HB33Z Insertion of Infusion Device into Right Basilic Vein, Percutaneous Approach (ICD-10-PCS; 2023-04-29)
PROC: B54MZZA Ultrasonography of Right Upper Extremity Veins, Guidance (ICD-10-PCS; 2023-04-29)
PROC: 02HV33Z Insertion of Infusion Device into Superior Vena Cava, Percutaneous Approach (ICD-10-PCS; principal; 2023-04-30)
PROC: B548ZZA Ultrasonography of Superior Vena Cava, Guidance (ICD-10-PCS; 2023-04-30)
DX: A41.9 Sepsis, unspecified organism (principal); E43 Unspecified severe protein-calorie malnutrition; I21.A1 Myocardial infarction type 2; G93.41 Metabolic encephalopathy; I50.23 Acute on chronic systolic (congestive) heart failure; J96.01 Acute respiratory failure with hypoxia; N17.0 Acute kidney failure with tubular necrosis; N18.6 End stage renal disease; R57.0 Cardiogenic shock; R65.21 Severe sepsis with septic shock; E87.20 Acidosis, unspecified; I13.2 Hypertensive heart and chronic kidney disease with heart failure and with stage 5 chronic kidney disease, or end stage renal disease; Z68.41 Body mass index [BMI] 40.0-44.9, adult; D63.1 Anemia in chronic kidney disease; Z66 Do not resuscitate; E78.5 Hyperlipidemia, unspecified; N13.5 Crossing vessel and stricture of ureter without hydronephrosis; N30.90 Cystitis, unspecified without hematuria; E11.22 Type 2 diabetes mellitus with diabetic chronic kidney disease; E87.5 Hyperkalemia; G30.9 Alzheimer's disease, unspecified; F02.80 Dementia in other diseases classified elsewhere, unspecified severity, without behavioral disturbance, psychotic disturbance, mood disturbance, and anxiety; I48.91 Unspecified atrial fibrillation; Z51.5 Encounter for palliative care; Z82.49 Family history of ischemic heart disease and other diseases of the circulatory system; Z83.3 Family history of diabetes mellitus; Z86.73 Personal history of transient ischemic attack (TIA), and cerebral infarction without residual deficits; Z87.442 Personal history of urinary calculi; Z80.0 Family history of malignant neoplasm of digestive organs; Z89.511 Acquired absence of right leg below knee; Z89.512 Acquired absence of left leg below knee; Z89.611 Acquired absence of right leg above knee; Z89.612 Acquired absence of left leg above knee; Z93.6 Other artificial openings of urinary tract status
CPT/HCPCS: 36415; 36569; 36600; 70450; 71045; 74018; 80048; 80053; 80061; 80307; 80320; 81001; 82550; 82570; 82805; 82962; 83036; 83605; 83735; 83880; 83930; 84156; 84300; 84484; 85007; 85025; 85027; 85610; 85652; 85730; 86141; 87040; 87081; 87086; 87088; 87186; 93005; 93306; C9113; G0378; J0696; J1815; J2405; P9047